=== PATIENT | female | born 1985 | race Caucasian/White ===

== ENCOUNTER 2021-02-16 15:21 | Outpatient (CLI) | payer OTHER, SELFPAY ==
--- NOTE | ~2021-02-16 | US_ITS ---
EXAMINATION: US thyroid EXAM DATE: 02/16/2021 15:46 INDICATION: E04.9 - Nontoxic goiter, unspecified. Weight loss, hair loss, palpitations. TECHNIQUE: Multiple grayscale and Doppler images of the thyroid were obtained (by a technologist who performed the scan) and subsequently reviewed. Individual nodules and recommendations may be reporte d in accordance with TI-RADS system as designated by the 2017 ACR White Paper TI-RADS committee. The re is no prior study for comparison. FINDINGS: The right thyroid lobe measures 5.7 x 2.0 x 1.7 cm, the left measuring 5.0 x 1.7 x 1.6 cm. These dime nsions are mildly enlarged. There is mildly heterogeneous tired echogenicity and mildly diffusely hyp ervascular parenchyma. A 4 mm nodule was demonstrated in the left thyroid lobe, not likely clinically significant. IMPRESSION: Mildly hypervascular goiter. Reviewed, dictated and finalized at location G.
== END 2021-02-16 15:22 | disposition home or self-care (01) ==
PROVIDERS: PCP Family Medicine; Visit Provider Family Medicine
DX: E04.9 Nontoxic goiter, unspecified (principal)
CPT/HCPCS: 76536

== ENCOUNTER → 2021-03-12 10:40 | Outpatient (CLI) | payer OTHER, SELFPAY ==
--- NOTE | ~2021-03-12 | XR_ITS ---
XR chest 2V DATE: 03/12/2021 10:53 INDICATION: Shortness of breath TECHNIQUE: PA and lateral views COMPARISON: None FINDINGS: Bilateral hyperinflation. No pulmonary infiltrate or consolidation or pulmonary mass lesion is evident. Normal heart size. No hilar or mediastinal enlargement. No pleural effusion or pulmonary vascular congestion or pneumothorax. Included skeletal structures are unremarkable. IMPRESSION: No active cardiopulmonary disease Reviewed, dictated and finalized at location A.
== END ==
PROVIDERS: Visit Provider Family Medicine
DX: R06.02 Shortness of breath (principal)
CPT/HCPCS: 71046

== ENCOUNTER 2021-03-22 10:25 | Emergency (ER) | payer OTHER, SELFPAY ==
[2021-03-22 10:34] VITALS: BP 116/71; PULSE 72; RESP 16; TEMP 36.6; O2SAT 98
--- NOTE | 2021-03-22 10:38 | ED.GENADULT ---
HPI - General Adult General Chief complaint: Upper Respiratory Infection Stated complaint: SOB/CHEST HURTS Time Seen by Provider: 03/22/21 10:48 Source: patient and RN notes reviewed Mode of arrival: ambulatory Limitations: no limitations History of Present Illness HPI narrative: 36-year-old female presents with concern for shortness of breath. Reports over the last several months she has had unintended weight loss, some hair loss and has began having shortness of breath. She reports she has seen her primary care doctor and has had some blood work done. Reports she has had a chest x-ray done recently. Reports her primary care doctor called her in an albuterol inhaler for which she has been using 1 puff every 6 hours with minimal to no relief. She denies cough. Reports mild nasal congestion that only started recently. She reports over the last several days her shortness of breath has worsened. She denies any exacerbating or relieving factors. She denies fever, body aches, chills, sweats. Reports she has been vaccinated for Covid. She denies any previous Covid infection. She denies diaphoresis, nausea, vomiting, chest pain. Reports chest wall hurts with breathing. MD complaint: Shortness of breath Related Data Home Medications Medication Instructions Recorded Confirmed alprazolam 0.25 mg tablet 0.25 mg PO PRN tablet 01/20/21 02/06/21 bupropion HCl 150 mg 24 hr tablet, tablet PO 01/20/21 02/06/21 extended release escitalopram oxalate 10 mg tablet 10 mg PO DAILY tablet 01/20/21 02/06/21 prenat.vits,karen,vhn-ckul-nemin 1 tablet PO DAILY 01/20/21 02/06/21 valacyclovir 500 mg tablet 500 mg PO DAILY tablet 01/20/21 01/21/21 Allergies Allergy/AdvReac Type Severity Reaction Status Date / Time No Known Allergies Allergy Unverified 03/12/21 09:24 Review of Systems Review of Systems: Narrative: CONSTITUTIONAL: Denies malaise, chills, sweats, or fever. ENT: Denies rhinorrhea, sinus pain, otalgia or sore throat. Reports mild nasal congestion CARDIOVASCULAR: Denies chest pain, palpitations, or edema. RESPIRATORY: Denies cough. Reports dyspnea. GASTROINTESTINAL: Denies nausea, vomiting MUSCULOSKELETAL: Denies back pain, joint pain, or myalgia. NEUROLOGIC: Denies numbness, weakness, or headache. All systems reviewed & are unremarkable except as noted in HPI and below PMFSH Surgical History Surgical History H/O: 2019 Family History Family History Mother Hypertension Prediabetes Other Breast cancer Mother Hypertension Father Patient's father is in good health Sibling Patient's sister is in good health Patient's brother is in good health Social History Social History (Updated 03/12/21 @ 09:34 by Erica Ruvalcaba) Social History: Smoking status: Never smoker Second hand tobacco smoke exposure: No Alcohol intake: current Drinks per week: 2 Substance use: never Substance use type: does not use Gender identity (if verbalized by the patient): Female Comments At time of signature, agree with nursing past medical, surgical, social and family history. There is no relevant family history pertinent to the presenting complaint Exam Narrative: Exam Narrative: GENERAL: Well-appearing, well-nourished, and in no acute distress. HEAD: Normocephalic EYES: PERRLA, conjunctivae clear ENT: Nares clear, turbinates erythematous, clear discharge. Mucous membranes moist. TM pearly hernandez with sharp light reflex bilaterally; no tragal tenderness. Oropharynx not erythematous without lesions. Tonsils not enlarged and without exudate, no drooling, no hoarseness, no trismus, uvula midline. NECK: Supple. No lymphadenopathy CHEST: Clear to auscultation, breath sounds equal. No wheezing, rhonchi, rales, or stridor. No respiratory distress, speaks in full sentences. HEART: Regular rate and rhyt
== END 2021-03-22 11:05 | disposition home or self-care (01) ==
PROVIDERS: Emergency Provider Nurse Practitioner; PCP Family Medicine
DX: R06.02 Shortness of breath (principal)
CPT/HCPCS: 99213; G0463

== ENCOUNTER 2021-04-16 08:17 | Outpatient (CLI) | payer OTHER, SELFPAY ==
--- NOTE | 2021-04-16 09:22 | ECHO_ITS ---
Patient Info Name: Lissa Emmanuel Age: 36 years : 1985 Gender: Female Ht: 71 in Wt: 140 lbs BSA: 1.77 m2 HR: 63 bpm BP: 103 / 64 mmHg Exam Date: 04/16/2021 9:44 AM Exam Location: [facility] Patient Status: Outpatient Admit Date: 04/16/2021 Staff Ordering Physician: Olamide Pena MD Cad Designer Drafter: Felix Merino, JOHN, RT Attending Provider: Olamide Pena MD Referring Physician: Jean HERBERT; Exam Type: CA echo doppler color flow Study Info Indications R06.02 - Shortness of breath I49.8 - Other specified cardiac arrhythmias Complete two-dimensional, color flow and Doppler transthoracic echocardiogram is performed. Strain analysis performed. Summary 1. Complete two-dimensional, color flow and Doppler transthoracic echocardiogram is performed. 2. Left ventricular chamber dimension is normal. 3. Left ventricular systolic function is normal, estimated at 60-65%. 4. The left ventricular diastolic function is normal. 5. E/e' 4 is not elevated. 6. Global longitudinal strain is normal at -20.6%. 7. Dilated inferior vena cava with >50% collapse upon inspiration consistent with elevated right atrial pressure, 10 mmHg. Left Ventricle E/e' 4 is not elevated. Global longitudinal strain is normal at -20.6%. Left ventricular chamber dimension is normal. Left ventricular systolic function is normal, estimated at 60-65%. The left ventricular diastolic function is normal. Right Ventricle Right ventricular chamber dimension is normal. Right ventricular systolic function is normal. Left Atria Left atrial chamber dimension is normal. Right Atria Right atrial chamber dimension is normal. Aortic Valve The aortic valve is trileaflet. There is no aortic valve stenosis. There is no aortic valve regurgitation. Pulmonic Valve There is no pulmonic regurgitation. Mitral Valve There is no mitral valve stenosis. There is no mitral valve regurgitation. Tricuspid Valve There is no tricuspid valve regurgitation. Pericardium/Pleural There is no pericardial effusion. Inferior Vena Cava Dilated inferior vena cava with >50% collapse upon inspiration consistent with elevated right atrial pressure, 10 mmHg. Aorta The aortic root size at the sinus of Valsalva is normal. Left Ventricular Outflow Tract Name Value Normal LVOT Doppler LVOT Peak Gradient 4 mmHg LVOT Mean Gradient 2 mmHg LVOT VTI 19 cm LVOT VTI/AV VTI Ratio 0.7 Mitral Valve Name Value Normal MV Doppler MV Decel [place] 283 cm/s2 MV PHT 68 ms MV Area (PHT) 3.2 cm2 4.0-5.0 MV Diastolic Function MV E Peak Velocity 67 cm/s MV A Peak Velocity
--- NOTE | 2021-04-19 20:33 | P.PCNPFT_ITS ---
PFT Procedure Performed PFT Procedure Performed Spirometry with Pre/Post Bronchodilator Plethysmography (Lung Vol) Diffusing Cap (DLCO) PFT Interpretation DOS: 04/16/2021 REQUESTING: Dr. Olamide Pena REASON FOR TESTING: shortness of breath PULMONARY FUNCTION TESTS Results are reproducible and reliable. Spirometry: FEV1 106%, normal, 4.05 L. FVC 122%, normal. The FEF 25-75% is 76% and increases by 26% after bronchodilator. There is a non statistically significant increase in flows in FEV1 and FVC after bronchodilator administration. Lung volumes: Total lung capacity increased 134%, mild hyperinflation. Residual volume 109% normal. RV/TLC is 25% normal. Airway resistance incr eased 203%. Diffusion: DLCO 106%, normal. Flow volume loop: Flattening of the inspiratory limb which is reproduced on all attempts, consistent with a variable extrathoracic obstruction. IMPRESSION: Small airways pattern with good response to bronchodilator, mild hyperinflation without air trapping, and normal diffusion. These findings suggest asthma. In addition, there is a reproducible flattening of the inspiratory curve which suggests a variable extrathoracic obstruction. Differential diagnosis includes vocal cord dysfunction, obstructive sleep apnea, vocal cord paralysis and neuromuscular disorders. Clinical correlation is recommended. Yarelis Nash MD
== END 2021-04-16 08:18 | disposition home or self-care (01) ==
PROVIDERS: PCP Family Medicine; Visit Provider Family Medicine
DX: R06.02 Shortness of breath (principal); R01.1 Cardiac murmur, unspecified; R09.89 Other specified symptoms and signs involving the circulatory and respiratory systems; R94.2 Abnormal results of pulmonary function studies
CPT/HCPCS: 93306; 94060; 94726; 94729

== ENCOUNTER 2021-11-10 11:00 | Outpatient (RCR) | payer OTHER, SELFPAY ==
--- NOTE | 2021-10-25 16:04 | STOPEVAL ---
VOICE EVALUATION Thank you for referring Lissa Emmanuel to [facility].? The patient is scheduled to be seen for therapy? 1x/week for 4 weeks. Please review, sign, date and return this plan of care GAUDENCIO. I agree with and certify that the following plan of care is medically necessary. Referring Physician Date Attending Provider: Adelita Hood, HOME THEATRE TECHNICIAN-BC Therapy Assessment Status Assessment Status Assessment Status Evaluation Outpatient Past Medical History Cardiovascular History Hx Other Cardiac Disorders Yes: Was told she nerve does not cycle like it used to Evaluation Information Problem Diagnosis Vocal cord dysfunction Onset 12/2020 Subjective Information Patient reported that she Query Text:As Reported By Patient/ delivered a baby in January 2020 Family and that following that approximately six months later, she developed thyroid issues including hair loss and weight loss. She discontinued breast-feeding, and the thyroid issues began to resolve with no need for medication. She reports being vaccinated for Covid around the same time. She reports additionally that she began experiencing shortness of breath, no difference between exertion and at rest. She describes this as requiring a large, deep breath periodically. Patient reports that in the fall, she felt her symptoms had improved but had began to be present again. 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 Pain Assessment Timing of Pain Assessment Timing of Pain Assessment Assessment Self Report Self Report Pain Level 0 Pain Score Pain Score 0: Self Report Voice Evaluation Voice History Voice History Denies any change in vocalizing/phonating. Onset & Duration of Problem Approximately 10 months Laryngeal Pain No
--- NOTE | 2021-12-03 15:14 | PCSTNOTE ---
Patient was seen for an evaluation and a follow up treatment. It was determined to either place on hold or discharge as she will be following up with pulmonary physician. When therapist attempted to contact her week of 01/01 patient did not respond or call back. She is being discharged.
--- NOTE | 2021-12-03 15:20 | STOPEVAL ---
Thank you for referring Lissa Emmanuel to [facility].? Referring Physician Date Attending Provider: Adelita Hood, PERSONAL CLOTHING LAUNDRY AIDE-BC Therapy Assessment Status Assessment Status Assessment Status Discharge - Pt Not Present ST Clinical Summary Clinical Summary ST Clinical Summary DISCHARGE SUMMARY Patient was seen for an initial evaluation due to becoming short of breath when speaking. She was instructed in the use of breath control exercises and phonation/ respiration coordination exercises and related tasks. She was seen for one follow up visit to determine if exercises had been useful. Patient reported that she felt they had been useful but also expressed she did not feel that continuing Speech Therapy was the right path at this time. 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 Patient is discharged with goals achieved at this time.
== END 2021-12-06 15:33 | disposition home or self-care (01) ==
LOC: ANHST 11:00
PROVIDERS: PCP Family Medicine; Visit Provider Nurse Practitioner
DX: R49.9 Unspecified voice and resonance disorder (principal)
CPT/HCPCS: 92507; 92524

== ENCOUNTER 2021-11-15 08:39 | Outpatient (CLI) | payer OTHER, SELFPAY ==
--- NOTE | 2021-11-16 11:39 | WPDMETH ---
Methacholine Procedure Perform Procedure Performed Methacholine Challenge Methacholine Challenge Methacholine challenge testing was performed with increasing doses of nebulized methacholine according to ATS/ERS 2017 guidelines. Following administration of over 464 mcg of nebulized methacholine (level 5, provocative dose), the measured FEV1 decreased by approximately 17% from the baseline measurement. Post administration of nebulized short-acting bronchodilator, the FEV1 returned back to near baseline value. Impression: Negative methacholine challenge testing. Normal airway hyperresponsiveness.
== END 2021-11-15 08:40 | disposition home or self-care (01) ==
LOC: ANHPFT 08:43
PROVIDERS: PCP Family Medicine; Visit Provider Nurse Practitioner
DX: J45.909 Unspecified asthma, uncomplicated (principal)
CPT/HCPCS: 94070; J7674

== ENCOUNTER → 2022-02-07 08:18 | Outpatient (CLI) | payer OTHER, SELFPAY ==
--- NOTE | ~2022-02-07 | CT_ITS ---
EXAMINATION: CTA chest PE protocol DATE: 02/07/2022 08:48 INDICATION: Chest pain, chest tightness, shortness of breath TECHNIQUE: Computed tomography angiography (CTA) of the chest was performed with 100 mL Omnipaque-350 intravenous contrast timed to evaluate the pulmonary arteries. Coronal maximum intensity projection 3D-reconstructions were created by the technologist. Automated exposure control and iterative reconst ruction technique were employed. Exam dose: 231.76 mGy-cm total exam DLP. COMPARISON: None. FINDINGS: There is diagnostic contrast enhancement of the pulmonary arteries and no evidence of pulmo nary embolism. No thoracic aortic aneurysm or dissection. No hilar or mediastinal mass lesion or lymphadenopathy. Normal heart size. No pericardial or pleural effusion. The lungs are clear of infiltrate or consolidation. No pulmonary mass lesion is noted. Included skeletal structures are unremarkable. IMPRESSION: No significant abnormality. No evidence of pulmonary embolus Reviewed, dictated and finalized at Location A. Reviewed, dictated and finalized at location A.
== END ==
PROVIDERS: PCP Family Medicine; Visit Provider Nurse Practitioner
DX: R07.89 Other chest pain (principal)
CPT/HCPCS: 71275; Q9967

== ENCOUNTER 2023-06-27 08:14 | Outpatient (CLI) | payer BC, SELFPAY ==
--- NOTE | 2023-06-27 14:07 | WPDMETH ---
Methacholine Procedure Perform Procedure Performed Methacholine Challenge Methacholine Challenge Methacholine Challenge: Methacholine challenge was performed with quadrupling increases of nebulized methacholine according to the 5-step dosimeter protocol by the ATS /ERS 2017 guidelines. Following administration of 464.4 mcg of methacholine at step 5,? the measured FEV1 decreased by approximately 12% from the baseline measurement.? Post administration of a nebulized short-acting bronchodilator, the FEV1 returned back to near baseline level.? Impression:? Negative methacholine challenge testing.? Normal airway hyperresponsiveness.?
== END 2023-06-27 08:15 | disposition home or self-care (01) ==
PROVIDERS: PCP Family Medicine; Visit Provider Nurse Practitioner
DX: J45.909 Unspecified asthma, uncomplicated (principal)
CPT/HCPCS: 94070; J7674

== ENCOUNTER 2023-12-08 10:11 | Outpatient (CLI) | payer BC, SELFPAY ==
--- NOTE | ~2023-12-08 | XR_ITS ---
XR lumbar spine 2-3V DATE: 12/08/2023 10:25 INDICATION: Low back pain. No injury. TECHNIQUE: AP, lateral, coned lateral lumbosacral views COMPARISON: None FINDINGS: Normal alignment of the lumbar spine. No fracture or bone destruction or spondylolisthesis. The included lower thoracic and lumbar pedicles are intact. No fracture or bone destruction. Lumbar and lumbosacral interspaces are well preserved. The sacroiliac joints are intact. IMPRESSION: Negative Reviewed, dictated and finalized at location B. IMPRESSION: Negative
--- NOTE | ~2023-12-08 | XR_ITS ---
XR hip BI 2V w AP pelvis DATE: 12/08/2023 10:25 INDICATION: Bilateral hip pain for 5 to 6 months TECHNIQUE: AP pelvis. AP and lateral views of both hips COMPARISON: None FINDINGS: Normal alignment at the pubic symphysis and sacroiliac joints. No pelvic fracture or bone d estruction. Hip joint spaces are symmetric and well preserved. No fracture, dislocation, avascular ne crosis or bone destruction of either hip is detected. IMPRESSION: Negative Reviewed, dictated and finalized at location B. IMPRESSION: Negative
== END 2023-12-08 10:12 ==
LOC: MICIMG 10:13
PROVIDERS: PCP Family Medicine; Visit Provider Physician Assistant
DX: M54.50 Low back pain, unspecified (principal); R26.81 Unsteadiness on feet
CPT/HCPCS: 72100; 73521

== ENCOUNTER 2024-03-19 11:01 | Outpatient (CLI) | payer BC, SELFPAY ==
--- NOTE | ~2024-03-19 | US_ITS ---
Thyroid ultrasound. Clinical History: Abnormal thyroid function studies COMPARISON: 02/16/2021 Findings: Real-time sonography of the thyroid gland was performed. The right lobe measures 5.5 x 2.1 x 1.4 cm. The left lobe measures 4.8 x 1.6 x 1.9 cm. The isthmus is 4 mm in AP diameter. Thyroid par enchyma is mildly heterogeneous, without discrete nodule. Impression: Mildly heterogeneous thyroid parenchyma, without discrete nodule.. Reviewed, dictated and finalized at location . Impression: Mildly heterogeneous thyroid parenchyma, without discrete nodule..
== END 2024-03-19 11:02 ==
LOC: MICIMG 11:02
PROVIDERS: PCP Family Medicine
DX: E06.3 Autoimmune thyroiditis (principal); R94.6 Abnormal results of thyroid function studies; I10 Essential (primary) hypertension
CPT/HCPCS: 76536

== ENCOUNTER 2024-11-12 09:26 | Outpatient (CLI) | payer BC, SELFPAY ==
--- NOTE | ~2024-11-12 | XR_ITS ---
CHEST RADIOGRAPH, PA AND LATERAL CLINICAL HISTORY: R06.09 - Other forms of dyspnea . COMPARISON: 03/12/2021 TECHNIQUE: PA and lateral views of the chest. FINDINGS The cardiomediastinal silhouette is unremarkable. The lungs are clear. Visualized osseous structures and soft tissues are unremarkable. IMPRESSION: No focal infiltrate or effusion. Reviewed, dictated and finalized at location A.
== END 2024-11-12 09:27 | disposition home or self-care (01) ==
LOC: MICIMG 09:28
PROVIDERS: PCP Family Medicine; Visit Provider Nurse Practitioner Family
DX: R06.09 Other forms of dyspnea (principal)
CPT/HCPCS: 71046